=== PATIENT | female | born 1950 | race Native Hawaiian/Other Pacific Islander ===

== ENCOUNTER 2023-07-23 10:23 | Observation (INO) | payer OTHER, MEDICAID ==
[~2023-07-23] VITALS: Ht 167.6 cm; Wt 73.0 kg
[2023-07-23 14:13] LABS: HEMATOCRIT 32.2 % (37.0-47.0); HEMOGLOBIN 10.3 g/dl (12.5-16.0); MEAN CELL VOLUME 106 fl (80.0-100.0); MEAN CORPUSCULAR HEMOGLOBIN 34 pg (27-31); MEAN CORPUSCULAR HGB CONC 32 g/dl (33.0-37.0); MEAN PLATELET VOLUME 9.7 fl (7.4-10.4); PLATELET COUNT 258 K/mm3 (130-400); RED BLOOD COUNT 3.05 M/mm3 (4.10-5.30); REDCELL DISTRIBUTION WIDTH-CV 17.3 % (11.5-14.5)
[2023-07-23 14:34] LABS: ALBUMIN 3.5 g/dL (3.4-4.8); BILIRUBIN,TOTAL 0.6 mg/dL (0.2-1.2); CALCIUM 10.9 mg/dL (8.4-10.2); CREATININE, serum 1.36 mg/dL (0.57-1.11); POTASSIUM 3.6 mEq/L (3.5-4.5); TOTAL PROTEIN 7.3 g/dl (6.2-8.1)
[2023-07-23 14:38] LABS: TROPONIN-I 0.058 ng/mL (0.00-0.033)
[2023-07-23 14:54] LABS: EOSINOPHIL 2 % (0-4); HYPOCHROMIA 1+; LYMPHOCYTE 15 % (20.0-51.0); NEUTROPHILS 79 % (42.0-75.2)
[2023-07-23 14:55] LABS: ANISOCYTOSIS 1+; PLATELET ESTIMATE NORMAL (NORMAL)
[2023-07-23] MEDS ORDERED: Furosemide 40 MG/4 ML VIAL IV ONE (15:30)
[2023-07-23] MEDS ORDERED: Docusate Sodium 100 MG CAP PO PRN (16:00)
[2023-07-23] MEDS ORDERED: Polyethylene Glycol 3350 17 GM PDS PO PRN (16:00)
[2023-07-23] MEDS ORDERED: Acetaminophen 325 MG TAB PO PRN (16:00)
[2023-07-23] MEDS ORDERED: Ondansetron 4 MG/2 ML VIAL IV PRN (16:00)
[2023-07-23] MEDS ORDERED: Heparin 5,000 UNITS/ML 1 ML VIAL SQ SCH (16:11)
[2023-07-23] MEDS ORDERED: CATAPRES 0.1MG0.1 MG PO (16:39)
[2023-07-23] MEDS ORDERED: SYNTHROID0.1 MG/TAB PO (16:39)
[2023-07-23] MEDS ORDERED: CRESTOR20 MG PO (16:40)
[2023-07-23] MEDS ORDERED: ASPIRIN 81M81 MG/TA2 PO (16:40)
[2023-07-23] MEDS ORDERED: FOLIC ACID800 MCG PO (16:41)
[2023-07-23] MEDS ORDERED: NORCO 325 MG-7.1 TAB PO (16:41)
[2023-07-23] MEDS ORDERED: ZYLOPRIM 300MG300 MG PO (16:42)
[2023-07-23] MEDS ORDERED: CALCITRIOL PO (16:42)
[2023-07-23] MEDS ORDERED: FERROUS SU325 MG/TAB PO (16:43)
[2023-07-23] MEDS ORDERED: MAGNESIUM250 M1 PO ×2 (16:44)
[2023-07-23] MEDS ORDERED: B COMPLEX & B121 TAB (16:44)
[2023-07-23] MEDS ORDERED: VITAMIN D31000 I1 PO (16:45)
[2023-07-23] MEDS ORDERED: RASUVO SQ (16:46)
[2023-07-23] MEDS ORDERED: TEMOVATE45OI TOP (16:47)
[2023-07-23] MEDS ORDERED: PROCRIT 4,04 MU/VIAL (16:47)
[2023-07-23] MEDS ORDERED: Insulin Lispro (HumaLOG) SQ SCH (17:00)
[2023-07-23 17:10] VITALS: BP 131/60; PULSE 57
--- NOTE | 2023-07-23 17:15 | NUR ---
PATIENT ARRIVED FROM ER AWAKE AND ALERT. VSS. PATIENTS SISTER AT BEDSIDE. PATIENT ORIENTED TO ROOM NAD CURRENT PLAN OF CARE. CALL LIGHT WITHIN REACH. FALL PRECAUTIONS IN PLACE. BED ALARM ON.
--- NOTE | 2023-07-23 17:55 | NUR ---
INFORMED OF TROP
[2023-07-23 21:00] VITALS: BP 107/67; PULSE 72; TEMP 98.4
[2023-07-23] MEDS ORDERED: Furosemide 40 MG/4 ML VIAL IV SCH (21:00)
--- NOTE | 2023-07-23 21:00 | NUR ---
Pt. sitting up in bed. Pt. is a&OX3, assessment complete. INT to rt. ac patent. Pt. reported pain at a 6 on pain scale to BLE. josephine Falcon, notified. New orders reveived. Pt. denies further needs, call light within reach.
[2023-07-23] MEDS ORDERED: cloNIDine 0.1 MG TAB PO SCH (22:42)
[2023-07-23] MEDS ORDERED: cefTRIAXone 1 G in Water For Injection,Sterile 10 ML IV SCH (23:30)
[2023-07-23] MEDS ORDERED: Vancomycin 1.5 GM,Special Dose/Pharmacy Prepared 1.5 GM in NS 250 ML IV ONE (23:30)
[2023-07-23 23:54] VITALS: BP 100/64; PULSE 66; TEMP 98.3
[2023-07-24] VITALS (16 sets, daily range): BP systolic 89–128; BP diastolic 53–71; PULSE 58–83; TEMP 97.7–98.5
--- NOTE | 2023-07-24 05:27 | NUR ---
72 yo female admitted for further care and management of bilateral lower extremity edema with additional concerns for sepsis likely of skin/soft tissue source (LLE erythema/?cellulitis). ht 167.6 cm wt 77.2 kg SCr 1.36 with estimated CrCl ~36 ml/min half life 22.6 hours Plan: Will give an initial loading dose of vancomycin 1500 mg x1 (19.4 mg/kg); followed by a maintenance regimen of vancomycin 1000 mg q24h to target a goal trough of 10-15 mcg/ml. Will follow patient's renal function, micro data, and vancomycin levels as indicated to assess for any necessary changes to regimen. Thank you for this dosing consult.
[2023-07-24 06:31] LABS: MEAN CORPUSCULAR HGB CONC 33 g/dl (33.0-37.0); MEAN PLATELET VOLUME 9.3 fl (7.4-10.4); PLATELET COUNT 202 K/mm3 (130-400); RED BLOOD COUNT 2.63 M/mm3 (4.10-5.30)
[2023-07-24 06:35] LABS: HEMATOCRIT 26.4 % (37.0-47.0); HEMOGLOBIN 8.8 g/dl (12.5-16.0); MEAN CELL VOLUME 100 fl (80.0-100.0); MEAN CORPUSCULAR HEMOGLOBIN 33 pg (27-31)
[2023-07-24 06:54] LABS: CREATININE, serum 1.57 mg/dL (0.57-1.11); POTASSIUM 3.6 mEq/L (3.5-4.5)
[2023-07-24] MEDS ORDERED: Glucagon 1 MG VIAL IM PRN (07:15)
[2023-07-24] MEDS ORDERED: Dextrose (Glucose) 15 GM (4 x 3.75 GM) Chewable TABLET PACK PO PRN (07:15)
[2023-07-24] MEDS ORDERED: Dextrose 50% Water 25 GM/50 ML SYRINGE IV PRN (07:15)
[2023-07-24 07:16] LABS: BAND 2 % (0-10); EOSINOPHIL 6 % (0-4); LYMPHOCYTE 12 % (20.0-51.0); NEUTROPHILS 80 % (42.0-75.2); PLATELET ESTIMATE NORMAL (NORMAL); SCHISTOCYTES 1+
[2023-07-24] MEDS ORDERED: Cholecalciferol (Vit D3) 1000 Units TAB PO SCH (09:00)
[2023-07-24] MEDS ORDERED: CLOBETASOL 0.05% TP SCH (09:00)
[2023-07-24] MEDS ORDERED: Ferrous Sulfate 325 MG TAB PO SCH (09:00)
[2023-07-24] MEDS ORDERED: Magnesium Gluconate 500 MG TAB PO SCH (09:00)
[2023-07-24] MEDS ORDERED: Calcitriol 0.25 MCG CAP PO SCH (09:00)
[2023-07-24] MEDS ORDERED: Rosuvastatin 20 MG **** subs to Atorvastatin 40 MG PO SCH (09:00)
[2023-07-24] MEDS ORDERED: Allopurinol 300 MG TAB PO SCH (09:00)
[2023-07-24] MEDS ORDERED: Folic Acid 1 MG TAB PO SCH (09:00)
[2023-07-24] MEDS ORDERED: Regadenoson 0.08 MG/ML 5 ML SYRINGE IV SCH (11:45)
[2023-07-24] MEDS ORDERED: Aminophylline 500 MG/20 ML VIAL IV SCH (12:12)
--- NOTE | 2023-07-24 12:12 | NUR ---
called to cardiopulmonary pt blood pressure has continued to drop. Pt given aminophylline per Dr Hopkins. Pt also to receive a fluid bolus of 500 mls of NS. Pts blood pressure was 78 systolic per report of Salina HUFFMAN 1225 bp 104/65 hr 73 sat 94% pt reports she is feeling better. 1234 Pt reports called to her nurse. Mli RN Status given. Pt reports she is feeling better.
[2023-07-24] MEDS ORDERED: NS 500 ML IV ONE (12:15)
[2023-07-24] MEDS ORDERED: NS 1,000 ML IV SCH (12:20)
--- NOTE | 2023-07-24 14:55 | NUR ---
[employer] Supervisor met with patient to discuss discharge planning. Patient verified that she lives in [place], [place] and is in [place] visiting her sister Ross Shepherd ([phone]). Patient states her daughter Aparna ([phone]) is her DPOA. Patient has a PCP in [place] and has listed [facility] pharmacy as her preference while she is in [place]. Patient stated she is normally independent and her daughter will arrive in [place] on Monday or to take her back to [place] on Monday. Patient is covered by Medicare and [employer] plan. No discharge needs identified at this time. Patient states her daughter will get a copy of her chart to take back to her PCP upon return to [place]. Discharge plan: Home with family
--- NOTE | 2023-07-24 16:27 | NUR ---
SW received call from patient's daughter Aparna requesting update on her mother. SW reviewed patient's information with daughter who verified information provided by patient. She did state that they will fly back to [place] and not drive. Provided daughter with contact information to speak with patient's nurse and contact information for [facility] regarding insurance information. Discharge plan: Home with family
[2023-07-24] MEDS ORDERED: Atorvastatin 40 MG TAB PO SCH (21:00)
--- NOTE | 2023-07-24 22:42 | NUR ---
patient lying in bed, alert and oriented x4. ambulated with stand by assist and walker to bathroom, steady gait. transfer to wheel chair and briefly brought into hallway per severe weather protocol, back in room when all clear and ambulated to bathroom again. denies chest pain and shortness of breath, reports 10/10 pain in BLE per request norco given. bruising to right eye and right side of forehead, small scattered bruising to extremities, redness and tenderness and +1 pitting edema to BLE noted. IV in RAC is patent, site is clean dry and intact. pt has no further needs, questions or concerns at this time. fall precautions in place, call light within reach. will continue to monitor.
[2023-07-25 00:50] VITALS: BP 110/56; PULSE 62; TEMP 97.7
[2023-07-25 01:29] VITALS: BP_SYST 110
[2023-07-25 04:33] VITALS: BP 128/68; PULSE 70; TEMP 97.8
[2023-07-25 04:53] VITALS: BP_SYST 128
[2023-07-25 06:56] LABS: BASO % 0.5 % (0.0-2.0); EOS # 0.4 K/mm3 (0.0-0.7); EOS % 8.8 % (0.0-4.0); GRAN # 2.6 K/mm3 (1.4-6.5); GRAN % 64.5 % (42.2-75.2); LYMPH # 0.8 K/mm3 (1.2-3.4); LYMPH % 20.3 % (20.0-51.0); MEAN CELL VOLUME 102 fl (80.0-100.0); MEAN CORPUSCULAR HGB CONC 34 g/dl (33.0-37.0); MEAN PLATELET VOLUME 9.4 fl (7.4-10.4); MONO # 0.2 K/mm3 (0.1-0.6); MONO % 5.4 % (1.7-9.3); PLATELET COUNT 208 K/mm3 (130-400); REDCELL DISTRIBUTION WIDTH-CV 16.9 % (11.5-14.5)
[2023-07-25 06:58] LABS: HEMATOCRIT 25.4 % (37.0-47.0); HEMOGLOBIN 8.5 g/dl (12.5-16.0); MEAN CORPUSCULAR HEMOGLOBIN 34 pg (27-31)
[2023-07-25 07:17] LABS: CALCIUM 9.6 mg/dL (8.4-10.2); CREATININE, serum 1.37 mg/dL (0.57-1.11); POTASSIUM 3.4 mEq/L (3.5-4.5)
[2023-07-25 07:54] VITALS: BP 101/63; PULSE 59; TEMP 98
[2023-07-25 09:00] VITALS: BP_SYST 101
[2023-07-25] MEDS ORDERED: DOXYCYCLINE 10100 MG PO (09:55)
[2023-07-25] MEDS ORDERED: *Potassium Replacement Protocol MC SCH (10:15)
[2023-07-25] MEDS ORDERED: Potassium Bicarbonate/Citrate 20 MEQ Effervescent TAB PO SCH (10:15)
--- NOTE | 2023-07-25 10:44 | NUR ---
Initial visit; Patient thanked Coin Box Inspector for stopping though stated that she has her own [employer] and they pray for her. Coin Box Inspector stated she just wanted to make sure she has someone taking care of her and wished her well. Patient smiled and thanked Coin Box Inspector again.
== END 2023-07-25 12:08 | disposition home or self-care (01) ==
LOC: COL.ER 10:23 → MEDICAL 15:57 → SURG 20:00 → MEDICAL 07-25 12:08 → SURG 07-25 12:08
PROVIDERS: Nurse Practitioner; ADMIT Hospitalist
DX: R60.0 Localized edema (principal); L53.8 Other specified erythematous conditions; M31.19 Other thrombotic microangiopathy; I48.91 Unspecified atrial fibrillation; D50.9 Iron deficiency anemia, unspecified; E78.5 Hyperlipidemia, unspecified; E03.9 Hypothyroidism, unspecified; N18.30 Chronic kidney disease, stage 3 unspecified; I12.9 Hypertensive chronic kidney disease with stage 1 through stage 4 chronic kidney disease, or unspecified chronic kidney disease; I21.4 Non-ST elevation (NSTEMI) myocardial infarction; R73.03 Prediabetes; R79.89 Other specified abnormal findings of blood chemistry; S09.93XD Unspecified injury of face, subsequent encounter; E87.6 Hypokalemia; Z79.899 Other long term (current) drug therapy; Z79.82 Long term (current) use of aspirin; Z79.890 Hormone replacement therapy; W19.XXXD Unspecified fall, subsequent encounter
CPT/HCPCS: A9500-JZ; G0378; J0280; J0696; J1644; J1940; J2785; J3370; J7030; J7050